=== PATIENT | male | born 1955 | race American Indian/Alaskan Native ===

== ENCOUNTER 2017-11-02 17:59 | Inpatient (IN) | payer OTHER ==
[2017-11-02 18:04] VITALS: BMI 23.5
--- NOTE | 2017-11-02 18:20 | ED PDOC ---
HPI: Hypertension/Hypotension Time Seen by Provider: 11/02/17 18:11 Chief Complaint (Nursing): High Blood Pressure History Per: Patient Onset/Duration Of Symptoms: Hrs (1) Current Symptoms Are (Timing): Better Associated Symptoms: denies: Chest Pain, Dizziness, Focal Weakness, Headache Additional Complaint(s): Brought by police for medical evaluation. Stopped for traffic violation and found to have elevated BP. had headache and dizziness at scene but sxs have since resolved. denies chest pain, palpitations or SOB Past Medical History Vital Signs: Last Vital Signs Temp 98.2 F 11/02/17 18:03 Pulse 68 11/02/17 18:03 Resp 16 11/02/17 18:03 BP 209/88 H 11/02/17 18:03 Pulse Ox 98 11/02/17 18:03 - Medical History PMH: HTN, End Stage Renal Disease (Last dialysis yesterday) - Family History Family History: States: Unknown Family Hx - Allergies Allergies/Adverse Reactions: Allergies Allergy/AdvReac Type Severity Reaction Status Date / Time No Known Allergies Allergy Verified 11/02/17 18:06 Review of Systems Cardiovascular: Negative for: Chest Pain, Palpitations Respiratory: Negative for: Shortness of Breath Neurological: Positive for: Headache, Dizziness Physical Exam - Physical Exam Appears: Positive for: Non-toxic, No Acute Distress Skin: Positive for: Normal Color, Warm, DRY Eye Exam: Positive for: EOMI, PERRL Cardiovascular/Chest: Positive for: Regular Rate, Rhythm Respiratory: Positive for: CNT, Normal Breath Sounds Neurologic/Psych: Positive for: Alert, Oriented. Negative for: Motor/Sensory Deficits - ECG O2 Sat by Pulse Oximetry: 98 Disposition - Clinical Impression Clinical Impression: Hypertension - Patient ED Disposition Is Patient to be Admitted: Transfer of Care - Disposition Disposition: Transfer of Care Disposition Time: 18:58 Condition: FAIR Forms: [employer]ex (Uzbek) Patient Signed Over To: Porfirio Hall
[2017-11-02 19:11] LABS: BASO % 0.7 % (0.0-2.0); EOS # 0.5 K/uL (0.0-0.7); EOS % 6.7 % (0.0-4.0); HEMOGLOBIN 12.3 g/dL (12.0-18.0); LYMPH % 14.9 % (20.0-40.0); MEAN CELL VOLUME 88.1 fl (80.0-94.0); MEAN CORPUSCULAR HEMOGLOBIN 28.1 pg (27.0-31.0); MEAN CORPUSCULAR HGB CONC 31.9 g/dL (33.0-37.0); MEAN PLATELET VOLUME 10.8 fl (7.2-11.7); MONO # 0.8 K/uL (0.0-0.8); MONO % 11.4 % (0.0-10.0); NEUT # 4.6 K/uL (1.8-7.0); NEUT % 66.3 % (50.0-75.0); RBC 4.37 Mil/uL (4.40-5.90); RED CELL DISTRIBUTION WIDTH 15.3 % (11.5-14.5)
--- NOTE | 2017-11-02 19:12 | ED PDOC ---
- Laboratory Results Result Diagrams: 11/02/17 19:00 11/02/17 19:00 - ECG O2 Sat by Pulse Oximetry: 98 Medical Decision Making Medical Decision Makin:00 Patient care is endorsed from Dr. Tyrone Richards to Dr. Porfirio Hall pending blood work and a chest XR. 20:00 BP resolving spontaneously, however still high at 180 systolic. Was unable to obtain prior EKG, attempted to reach Dr. Zoila Shah at without success. Give patient's symptoms, co-morbidities, and lack of prior EKG , will place in OBS Tele for further cardiac troponins and EKG. Will give ASA and coreg for BP. Dr. Connell aware. Scribe Attestation: Documented by Araseli Helms, acting as a scribe for Porfirio Hall MD. Provider Scribe Attestation: All medical entries made by the Scribe were at my direction and personally dictated by me. I have reviewed the chart and agree that the record accurately reflects my personal performance of the history, physical exam, medical decision making, and the department course for this patient. I have also personally directed, reviewed, and agree with the discharge instructions and disposition. Disposition - Clinical Impression Clinical Impression: Hypertension - POA Present On Arrival: None - Disposition Disposition: Hospitalized as Observation Patient Disposition Time: 20:00 Condition: FAIR
[2017-11-02 19:24] LABS: ALB/GLOB RATIO 1.2 (1.0-2.1); ALBUMIN 4.3 g/dL (3.5-5.0); CALCIUM 9.2 mg/dL (8.4-10.2)
[2017-11-02 19:35] LABS: TROPONIN I 0.034 ng/mL (0.00-0.120)
[2017-11-03] MEDS: Insulin Regular 100 units/ml SC SCH ×4 (06:55→22:29)
--- NOTE | 2017-11-03 08:37 | RAD ---
HISTORY: dizziness COMPARISON: No prior. FINDINGS: LUNGS: No active pulmonary disease. PLEURA: No significant pleural effusion identified, no pneumothorax apparent. CARDIOVASCULAR: Normal. OSSEOUS STRUCTURES: Degenerative changes. VISUALIZED UPPER ABDOMEN: Normal. OTHER FINDINGS: None. IMPRESSION: No active disease.
[2017-11-03] MEDS: Enoxaparin 30 mg Syringe SC SCH (09:11)
--- NOTE | 2017-11-03 17:17 | HP ---
CHIEF COMPLAINT: Found to have very high blood pressure. HISTORY OF PRESENT ILLNESS: This is a 62-year-old male, known case of end-stage renal disease, hypertension, on dialysis, who was due for dialysis yesterday, was stopped by police investigator and was found to have suspended licence and the patient got scared and started having coldness in his both lower extremities and then started feeling weak. The patient took his blood pressure, which was 229, so the patient was brought to emergency room and was admitted for further management. REVIEW OF SYSTEMS: Positive for coldness of feet and extremity and generalized weakness. Review of systems otherwise is negative for headache, dizziness, syncope, loss of consciousness, chest pain, shortness of breath, nausea, vomiting, diarrhea, constipation, any new joint or extremity pain. Review of systems of all other organ systems is unremarkable. PAST MEDICAL HISTORY: Significant for hypertension, end-stage renal disease. PAST SURGICAL HISTORY: Remarkable for dialysis-related procedures. PERSONAL HISTORY: Patient is currently nonsmoker, nondrinker. No substance abuse. MEDICATION: The patient is on medication as per reconciliation sheet, which was reviewed and ordered. ALLERGIES: THE PATIENT IS NOT ALLERGIC TO ANY MEDICATION. FAMILY HISTORY: Noncontributory. PHYSICAL EXAMINATION: GENERAL: Well-built, well-nourished, 62-year-old male, in no acute distress. VITAL SIGNS: Temperature afebrile, pulse 60, respirations 18, blood pressure 162/76. HEENT: Pupils reacting to light. No JVD. No thyromegaly. No lymphadenopathy. No nystagmus. Normocephalic, atraumatic skull. HEART: S1 and S2. Normal and regular. No significant murmur, gallop or rub is heard. LUNGS: Shows good bilateral air exchange. No rales or rhonchi. ABDOMEN: Soft, nontender. No organomegaly. No fluid. Bowel sounds are plus and normal. EXTREMITIES: No edema. No calf swelling. No tenderness. No acute ischemia. [employer]: The patient is alert, awake, oriented x3. There is no sign of any acute gross focal motor, sensory, or neurological deficit. DIAGNOSTIC DATA: Available diagnostic data reviewed. Telemetry monitoring does not reveal significant arrhythmias. WBC 7, hemoglobin 12.3, hematocrit 38.5, and platelets 183. Sodium 141, potassium 4.3, chloride 100, bicarb 27, BUN 15, creatinine 7.3. SMA-12 is unremarkable. Troponin, two sets are negative. EKG shows sinus rhythm with left ventricular hypertrophy. No acute ST-T changes. Chest x-ray is clear. ADMITTING IMPRESSION: Accelerated hypertension, end-stage renal disease. PLAN: As ordered. Case and plan discussed with the patient. Santos Connell MD
--- NOTE | 2017-11-03 22:19 | CP.PCM.PN ---
Subjective - Date & Time of Evaluation Date of Evaluation: 11/03/17 Time of Evaluation: 22:18 - Subjective Subjective: Renal Note pt seen and examined HD today as ordered BP meds adjusted Thanks for consult Objective - Vital Signs/Intake and Output Vital Signs (last 24 hours): Temp Pulse Resp BP Pulse Ox 98 F 60 16 172/78 H 98 11/03/17 16:52 11/03/17 17:16 11/03/17 16:52 11/03/17 17:16 11/03/17 16:52 - Medications Medications: Current Medications Amlodipine Besylate (Norvasc) 10 mg PO DAILY [facility] Last Admin: 11/03/17 09:10 Dose: Not Given Atorvastatin Calcium (Lipitor) 40 mg PO DAILY [facility] Last Admin: 11/03/17 09:11 Dose: 40 mg Carvedilol (Coreg) 12.5 mg PO BID [facility] Last Admin: 11/03/17 17:14 Dose: 12.5 mg Enoxaparin Sodium (Lovenox) 30 mg SC DAILY [facility] PRN Reason: Protocol Last Admin: 11/03/17 09:11 Dose: 30 mg Hydralazine HCl (Apresoline) 100 mg PO BID [facility] Last Admin: 11/03/17 09:10 Dose: Not Given Insulin Human Regular (Humulin R) 0 units SC ACHS [facility] PRN Reason: Protocol Last Admin: 11/03/17 17:15 Dose: 2 units Losartan Potassium (Cozaar) 50 mg PO QPM [facility] Last Admin: 11/03/17 17:16 Dose: 50 mg Vitamin B Complex/Vit C/Folic Acid (Nephro-Celia) 1 tab PO DAILY [facility] - Labs Labs: 11/02/17 19:00 11/02/17 19:00
[2017-11-04] MEDS: Enoxaparin 30 mg Syringe SC SCH (08:46)
[2017-11-04] MEDS: Multivitamin Vitamin B Complex (Nephro-Vite) Tab PO SCH (08:47)
[2017-11-04] MEDS: Insulin Regular 100 units/ml SC SCH ×4 (08:47→22:31)
[2017-11-04 12:37] LABS: HEPATITIS B SURFACE AG Negative (NEGATIVE)
[2017-11-04 12:43] LABS: HEPATITIS B CORE AB NEGATIVE (NEGATIVE)
--- NOTE | 2017-11-04 19:05 | CP.PCM.CON ---
History of Present Illness - History of Present Illness History of Present Illness: Nephrology Consultation Note: Assessment: Stable uncontrolled severe HTN with urgency Hypertensive Chronic Kidney Disease (I12.0) End stage renal disease (N18.6) dependence on hemodialysis (Z99.2) (TTS) via AVF Anemia (D64.9), Hyperphosphatemia (E83.39), Secondary Hyperparathyroidism (E21.1 ), HTN (I12.0) Plan: Will plan for HD today as ordered. Continue with Nephrovite 1 tab/day. PRBC as needed for anemia. not on RAVI with dialysis as last Hb 12.3 Continue with phos binders, check phos level BP control with meds as ordered. Patient not on RAAS josh as hence will start losartan Glycemic control, Dialysis consistent diet Further work up/management as per primary team Dose meds/antibiotics (if needed) for ESRD status. Avoid fleets enema/magnesium based laxatives. Thanks for allowing me to participate in care of your patient. Will follow patient with you. Please call if any Qs Dr Everton Carballo Office: [phone] Chief Complaint;elevated BP HPI: Pt is a 62 M with hx of ESRD on hemodialysis TTS) via AVF, last dialysis thur, chronic anemia, hyperphosphatemia, secondary hyperparathyroidism, hypertension presented with complaints of high BP Renal consult requested for ESRD management. ROS: Cardiovascular: No chest pain. Pulmonary: No shortness of breath Gastrointestinal: denies abdominal pain No nausea. No vomiting. Genitourinary: No pain while urinating. Denies blood in urine. All other negative except as mentioned in HPI Physical Examination: General Appearance: Comfortable, in no acute respiratory distress, co-operative . Vitals reviewed and noted as below Head; Atraumatic, normocephalic ENT: no ulcers no thrush. Tongue is midline. Oropharynx: no rash or ulcers. EYES: Pupils are equal, round and reactive to light accommodation. Eye muscles and extraocular movement intact. Sclera is anicteric. Neck; supple no lymphadenopathy, no thyromegaly or bruit Lungs: Normal respiratory rate/effort. Breath sounds bilateral equal and clear Heart: Normal rate. s1s2 normal. No rub or gallop. Extremities: no edema. No varicose veins Neurological: Patient is alert, awake and oriented to person, place and time. No focal deficit. Strength bilateral appropriate and equal Skin: Warm and dry. Normal turgor. No rash. Palpitation: Normal elasticity for age Abdomen: Abdomen is soft. Bowel sounds +. There is no abdominal tenderness, no guarding/rigidity or organomegaly Psych: normal insight and normal affect/mood MSK: no joint tenderness or swelling. Digits and nails normal, no deformity : kidney or bladder not palpable Access: AVF Labs/imaging reviewed. Past medical history, past surgical history, family history, social history, allergy reviewed and noted as below Family Hx: no hx of CKD. Non contributory Past Patient History - Past Medical History & Family History Past Medical History?: Yes - Past Social History Smoking Status: Never Smoked - CARDIAC Hx Cardiac Disorders: Yes (HTN, hypercholesterolemia) Hx Hypercholesterolemia: Yes Hx Hypertension: Yes - PULMONARY Hx Respiratory Disorders: No - NEUROLOGICAL Hx Neurological Disorder: No - HEENT Hx HEENT Problems: No - RENAL Hx Chronic Kidney Disease: Yes (CKD) Hx Dialysis: Yes Type of Dialysis Access: left arm AV shunt Date of Last Dialysis Treatment: 11/01/17 - ENDOCRINE/METABOLIC Hx Endocrine Disorders: Yes (DM) Hx Diabetes Mellitus Type 2: Yes - HEMATOLOGICAL/ONCOLOGICAL Hx Blood Disorders: No Hx AIDS: No Hx Human Immunodeficiency Virus (HIV): No - INTEGUMENTARY Hx Dermatological Problems: No - MUSCULOSKELETAL/RHEUMATOLOGICAL Hx Musculoskeletal Disorders: No Hx Falls: No - GASTROINTESTINAL Hx Gastrointestinal Disorders: No - GENITOURINARY/GYNECOLOGICAL Hx Genitourinary Disorders: No - PSYCHIATRIC Hx Psychophysiologic Disorder: No Hx Substance Use: No - SURGICAL HISTORY Hx Surgeries: Yes Other/Comment: shunt on right arm - ANESTHESIA Hx Anesthesia: Yes Hx Anesthesia Reactions: No Meds Allergies/Adverse Reactions: Allergies Allergy/AdvReac Type Severity Reaction Status Date / Time No Known Allergies Allergy Verified 11/02/17 18:06 - Medications Medications: Current Medications Amlodipine Besylate (Norvasc) 10 mg PO DAILY [facility] Last Admin: 11/04/17 08:47 Dose: 10 mg Atorvastatin Calcium (Lipitor) 40 mg PO DAILY [facility] Last Admin: 11/04/17 08:47 Dose: 40 mg Carvedilol (Coreg) 12.5 mg PO BID [facility] Last Admin: 11/04/17 17:04 Dose: 12.5 mg Enoxaparin Sodium (Lovenox) 30 mg SC DAILY [facility] PRN Reason: Protocol Last Admin: 11/04/17 08:46 Dose: 30 mg Hydralazine HCl (Apresoline) 100 mg PO TID [facility] Last Admin: 11/04/17 17:04 Dose: 100 mg Insulin Human Regular (Humulin R) 0 units SC ACHS [facility] PRN Reason: Protocol Last Admin: 11/04/17 17:02 Dose: Not Given Losartan Potassium (Cozaar) 100 mg PO QPM [facility] Last Admin: 11/04/17 17:03 Dose: 100 mg Vitamin B Complex/Vit C/Folic Acid (Nephro-Celia) 1 tab PO DAILY [facility] Last Admin: 11/04/17 08:47 Dose: 1 tab Results - Vital Signs Recent Vital Signs: Last Vital Signs Temp 97.9 F 11/04/17 16:27 Pulse 62 11/04/17 17:04 Resp 16 11/04/17 16:27 BP 159/75 H 11/04/17 17:04 Pulse Ox 96 11/04/17 16:27 - Labs Result Diagrams: 11/02/17 19:00 11/02/17 19:00 Labs: Laboratory Results - last 24 hr 11/03/17 11/03/17 11/03/17 21:00 21:00 21:42 POC Glucose (mg/dL) 125 H Hep Bs Antigen Negative Hep Bs Antibody Positive Hep B Core IgM Ab Negative 11/04/17 11/04/17 11/04/17 05:19 11:23 15:58 POC Glucose (mg/dL) 132 H 261 H 139 H Hep Bs Antigen Hep Bs Antibody Hep B Core IgM Ab
--- NOTE | 2017-11-04 19:06 | CP.PCM.PN ---
Subjective - Date & Time of Evaluation Date of Evaluation: 11/04/17 Time of Evaluation: 19:06 - Subjective Subjective: Nephrology Consultation Note: Assessment: Stable uncontrolled severe HTN with urgency Hypertensive Chronic Kidney Disease (I12.0) End stage renal disease (N18.6) dependence on hemodialysis (Z99.2) (TTS) via AVF Anemia (D64.9), Hyperphosphatemia (E83.39), Secondary Hyperparathyroidism (E21.1 ), HTN (I12.0) Plan: Will plan for HD sunday as ordered. Continue with Nephrovite 1 tab/day. PRBC as needed for anemia. not on RAVI with dialysis as last Hb 12.3 Continue with phos binders, check phos level BP control with meds as ordered. Increased hydralazine and losartan Glycemic control, Dialysis consistent diet Further work up/management as per primary team Dose meds/antibiotics (if needed) for ESRD status. Avoid fleets enema/magnesium based laxatives. Thanks for allowing me to participate in care of your patient. Will follow patient with you. Please call if any Qs Dr Everton Carballo Office: [phone] Chief Complaint;elevated BP HPI: Pt is a 62 M with hx of ESRD on hemodialysis TTS) via AVF, last dialysis thur, chronic anemia, hyperphosphatemia, secondary hyperparathyroidism, hypertension presented with complaints of high BP Renal consult requested for ESRD management. ROS: Cardiovascular: No chest pain. Pulmonary: No shortness of breath Gastrointestinal: denies abdominal pain No nausea. No vomiting. Genitourinary: No pain while urinating. Denies blood in urine. All other negative except as mentioned in HPI Physical Examination: General Appearance: Comfortable, in no acute respiratory distress, co-operative . Vitals reviewed and noted as below Head; Atraumatic, normocephalic ENT: no ulcers no thrush. Tongue is midline. Oropharynx: no rash or ulcers. EYES: Pupils are equal, round and reactive to light accommodation. Eye muscles and extraocular movement intact. Sclera is anicteric. Neck; supple no lymphadenopathy, no thyromegaly or bruit Lungs: Normal respiratory rate/effort. Breath sounds bilateral equal and clear Heart: Normal rate. s1s2 normal. No rub or gallop. Extremities: no edema. No varicose veins Neurological: Patient is alert, awake and oriented to person, place and time. No focal deficit. Strength bilateral appropriate and equal Skin: Warm and dry. Normal turgor. No rash. Palpitation: Normal elasticity for age Abdomen: Abdomen is soft. Bowel sounds +. There is no abdominal tenderness, no guarding/rigidity or organomegaly Psych: normal insight and normal affect/mood MSK: no joint tenderness or swelling. Digits and nails normal, no deformity : kidney or bladder not palpable Access: AVF Labs/imaging reviewed. Past medical history, past surgical history, family history, social history, allergy reviewed and noted as below Family Hx: no hx of CKD. Non contributory Objective - Vital Signs/Intake and Output Vital Signs (last 24 hours): Temp Pulse Resp BP Pulse Ox 97.9 F 62 16 159/75 H 96 11/04/17 16:27 11/04/17 17:04 11/04/17 16:27 11/04/17 17:04 11/04/17 16:27 - Medications Medications: Current Medications Amlodipine Besylate (Norvasc) 10 mg PO DAILY [facility] Last Admin: 11/04/17 08:47 Dose: 10 mg Atorvastatin Calcium (Lipitor) 40 mg PO DAILY [facility] Last Admin: 11/04/17 08:47 Dose: 40 mg Carvedilol (Coreg) 12.5 mg PO BID [facility] Last Admin: 11/04/17 17:04 Dose: 12.5 mg Enoxaparin Sodium (Lovenox) 30 mg SC DAILY [facility] PRN Reason: Protocol Last Admin: 11/04/17 08:46 Dose: 30 mg Hydralazine HCl (Apresoline) 100 mg PO TID [facility] Last Admin: 11/04/17 17:04 Dose: 100 mg Insulin Human Regular (Humulin R) 0 units SC ACHS [facility] PRN Reason: Protocol Last Admin: 11/04/17 17:02 Dose: Not Given Losartan Potassium (Cozaar) 100 mg PO QPM [facility] Last Admin: 11/04/17 17:03 Dose: 100 mg Vitamin B Complex/Vit C/Folic Acid (Nephro-Celia) 1 tab PO DAILY [facility] Last Admin: 11/04/17 08:47 Dose: 1 tab - Labs Labs: 11/02/17 19:00 11/02/17 19:00
--- NOTE | 2017-11-04 23:06 | CP.PCM.CON ---
History of Present Illness - History of Present Illness History of Present Illness: Consultation for uncontrolled HTN HPI: 62-year-old male with history of end-stage renal disease on hemodialysis was brought by police for medical evaluation after being stopped at a traffic violation of found to have uncontrolled elevated blood pressure accompanied with headache and dizziness at the scene but patient's symptoms subsequently resolved. Patient was evaluated by nephrology and was noted to have blood pressure which was elevated systolic was in the 180s. Patient was patient underwent hemodialysis and was given Nephro-Celia. Patient currently on Norvasc 10 mg along with Coreg 12.5 mg hydralazine 10 mg 3 times daily losartan 100 mg which was initiated on this admission blood pressure trend have started to improve and blood pressure seems to be well controlled last blood pressure this night was 118/49. Patient's chest x-ray on presentation showed no acute cardiopulmonary process echocardiogram was done on Sunday morning which was reviewed by me. Review of Systems - Review of Systems Systems not reviewed;Unavailable: Acuity of Condition - Constitutional Constitutional: As Per HPI - EENT Eyes: As Per HPI Ears: As Per HPI Nose/Mouth/Throat: As Per HPI - Cardiovascular Cardiovascular: As Per HPI - Respiratory Respiratory: As Per HPI - Gastrointestinal Gastrointestinal: As Per HPI - Genitourinary Genitourinary: As Per HPI - Reproductive: Male Reproductive:Male: As Per HPI - Musculoskeletal Musculoskeletal: As Per HPI - Integumentary Integumentary: As Per HPI - Neurological Neurological: As Per HPI - Psychiatric Psychiatric: As Per HPI - Endocrine Endocrine: As Per HPI - Hematologic/Lymphatic Hematologic: As Per HPI Past Patient History - Past Medical History & Family History Past Medical History?: Yes - Past Social History Smoking Status: Never Smoked - CARDIAC Hx Cardiac Disorders: Yes (HTN, hypercholesterolemia) Hx Hypercholesterolemia: Yes Hx Hypertension: Yes - PULMONARY Hx Respiratory Disorders: No - NEUROLOGICAL Hx Neurological Disorder: No - HEENT Hx HEENT Problems: No - RENAL Hx Chronic Kidney Disease: Yes (CKD) Hx Dialysis: Yes Type of Dialysis Access: left arm AV shunt Date of Last Dialysis Treatment: 11/01/17 - ENDOCRINE/METABOLIC Hx Endocrine Disorders: Yes (DM) Hx Diabetes Mellitus Type 2: Yes - HEMATOLOGICAL/ONCOLOGICAL Hx Blood Disorders: No Hx AIDS: No Hx Human Immunodeficiency Virus (HIV): No - INTEGUMENTARY Hx Dermatological Problems: No - MUSCULOSKELETAL/RHEUMATOLOGICAL Hx Musculoskeletal Disorders: No Hx Falls: No - GASTROINTESTINAL Hx Gastrointestinal Disorders: No - GENITOURINARY/GYNECOLOGICAL Hx Genitourinary Disorders: No - PSYCHIATRIC Hx Psychophysiologic Disorder: No Hx Substance Use: No - SURGICAL HISTORY Hx Surgeries: Yes Other/Comment: shunt on right arm - ANESTHESIA Hx Anesthesia: Yes Hx Anesthesia Reactions: No Meds Allergies/Adverse Reactions: Allergies Allergy/AdvReac Type Severity Reaction Status Date / Time No Known Allergies Allergy Verified 11/02/17 18:06 - Medications Medications: Current Medications Amlodipine Besylate (Norvasc) 10 mg PO DAILY [facility] Last Admin: 11/04/17 08:47 Dose: 10 mg Atorvastatin Calcium (Lipitor) 40 mg PO DAILY [facility] Last Admin: 11/04/17 08:47 Dose: 40 mg Carvedilol (Coreg) 12.5 mg PO BID [facility] Last Admin: 11/04/17 17:04 Dose: 12.5 mg Enoxaparin Sodium (Lovenox) 30 mg SC DAILY [facility] PRN Reason: Protocol Last Admin: 11/04/17 08:46 Dose: 30 mg Hydralazine HCl (Apresoline) 100 mg PO TID [facility] Last Admin: 11/04/17 17:04 Dose: 100 mg Insulin Human Regular (Humulin R) 0 units SC ACHS [facility] PRN Reason: Protocol Last Admin: 11/04/17 22:31 Dose: Not Given Losartan Potassium (Cozaar) 100 mg PO QPM [facility] Last Admin: 11/04/17 17:03 Dose: 100 mg Vitamin B Complex/Vit C/Folic Acid (Nephro-Celia) 1 tab PO DAILY [facility] Last Admin: 11/04/17 08:47 Dose: 1 tab Physical Exam - Constitutional Appears: Well - Head Exam Head Exam: ATRAUMATIC, NORMAL INSPECTION, NORMOCEPHALIC - Eye Exam Eye Exam: EOMI, Normal appearance, PERRL Pupil Exam: NORMAL ACCOMODATION, PERRL - ENT Exam ENT Exam: Mucous Membranes Moist, Normal Exam - Neck Exam Neck exam: Positive for: Normal Inspection - Respiratory Exam Respiratory Exam: Clear to Auscultation Bilateral, NORMAL BREATHING PATTERN - Cardiovascular Exam Cardiovascular Exam: REGULAR RHYTHM, +S1, +S2, Systolic Murmur - GI/Abdominal Exam GI & Abdominal Exam: Normal Bowel Sounds, Soft. absent: Tenderness - Extremities Exam Extremities exam: Positive for: normal inspection - Back Exam Back exam: NORMAL INSPECTION - Neurological Exam Neurological exam: Alert, CN II-XII Intact, Normal Gait, Oriented x3, Reflexes Normal - Psychiatric Exam Psychiatric exam: Normal Affect, Normal Mood - Skin Skin Exam: Dry, Intact, Normal Color, Warm Results - Vital Signs Recent Vital Signs: Last Vital Signs Temp 98.3 F 11/04/17 20:06 Pulse 53 L 11/04/17 20:06 Resp 16 11/04/17 20:06 BP 118/49 L 11/04/17 20:06 Pulse Ox 98 11/04/17 20:06 - Labs Result Diagrams: 11/02/17 19:00 11/02/17 19:00 Labs: Laboratory Results - last 24 hr 11/03/17 11/03/17 11/03/17 21:00 21:00 21:42 POC Glucose (mg/dL) 125 H Hep Bs Antigen Negative Hep Bs Antibody Positive Hep B Core IgM Ab Negative 11/04/17 11/04/17 11/04/17 05:19 11:23 15:58 POC Glucose (mg/dL) 132 H 261 H 139 H Hep Bs Antigen Hep Bs Antibody Hep B Core IgM Ab 11/04/17 21:33 POC Glucose (mg/dL) 199 H Hep Bs Antigen Hep Bs Antibody Hep B Core IgM Ab Assessment & Plan (1) Hypertension Assessment and Plan: BP improving on current meds cont norvasc, coreg, hydralazine and losartan check renal duplex echo shows mild LVH Status: Acute
[2017-11-05 00:04] VITALS: RESP 18
--- NOTE | 2017-11-05 08:03 | PN ---
DATE: 11/04/2017 SUBJECTIVE: The patient is seen and examined. Interim events noted. Consults noted and appreciated. The patient remains in progressive care unit. The patient feels okay. Denies any specific complaint. No chest pain. No shortness of breath. PHYSICAL EXAMINATION: GENERAL: The patient is no acute distress. VITAL SIGNS: Stable. HEART: S1 and S2. Normal and regular. LUNGS: Good bilateral air exchange. ABDOMEN: Soft and nontender. EXTREMITIES: No edema. No calf swelling. No tenderness. No acute ischemia. RECRUITING CONSULTANT: Exam is essentially unchanged. DIAGNOSTIC DATA: Available diagnostic data reviewed. ASSESSMENT AND PLAN: Overall, the patient's general medical condition is stable and improving. Plan as ordered. Santos Connell MD
[2017-11-05 08:27] VITALS: O2SAT 97
[2017-11-05] MEDS: Enoxaparin 30 mg Syringe SC SCH (08:36)
[2017-11-05] MEDS: Insulin Regular 100 units/ml SC SCH ×2 (08:37→12:51)
[2017-11-05] MEDS: Multivitamin Vitamin B Complex (Nephro-Vite) Tab PO SCH (08:38)
[2017-11-05 08:40] VITALS: PULSE 52
--- NOTE | 2017-11-05 10:39 | CP.PCM.PN ---
Subjective - Date & Time of Evaluation Date of Evaluation: 11/05/17 Time of Evaluation: 10:37 - Subjective Subjective: feeling fine denies any complaints bb on hold 2' to low HR Objective - Vital Signs/Intake and Output Vital Signs (last 24 hours): Temp Pulse Resp BP Pulse Ox 97.9 F 52 L 18 119/61 97 11/05/17 08:27 11/05/17 08:40 11/05/17 08:27 11/05/17 08:40 11/05/17 08:27 - Medications Medications: Current Medications Amlodipine Besylate (Norvasc) 10 mg PO DAILY [facility] Last Admin: 11/05/17 08:39 Dose: 10 mg Atorvastatin Calcium (Lipitor) 40 mg PO DAILY [facility] Last Admin: 11/05/17 08:38 Dose: 40 mg Carvedilol (Coreg) 6.25 mg PO BID [facility] Enoxaparin Sodium (Lovenox) 30 mg SC DAILY [facility] PRN Reason: Protocol Last Admin: 11/05/17 08:36 Dose: 30 mg Hydralazine HCl (Apresoline) 100 mg PO TID [facility] Last Admin: 11/05/17 08:40 Dose: 100 mg Insulin Human Regular (Humulin R) 0 units SC ACHS [facility] PRN Reason: Protocol Last Admin: 11/05/17 08:37 Dose: 3 units Losartan Potassium (Cozaar) 100 mg PO QPM [facility] Last Admin: 11/04/17 17:03 Dose: 100 mg Vitamin B Complex/Vit C/Folic Acid (Nephro-Celia) 1 tab PO DAILY [facility] Last Admin: 11/05/17 08:38 Dose: 1 tab - Labs Labs: 11/02/17 19:00 11/02/17 19:00 - Constitutional Appears: Well - Head Exam Head Exam: ATRAUMATIC, NORMAL INSPECTION, NORMOCEPHALIC - Eye Exam Eye Exam: EOMI, Normal appearance, PERRL Pupil Exam: NORMAL ACCOMODATION, PERRL - ENT Exam ENT Exam: Mucous Membranes Moist, Normal Exam - Neck Exam Neck Exam: Full ROM, Normal Inspection. absent: Lymphadenopathy - Respiratory Exam Respiratory Exam: Clear to Ausculation Bilateral, NORMAL BREATHING PATTERN - Cardiovascular Exam Cardiovascular Exam: REGULAR RHYTHM, +S1, +S2, Murmur - GI/Abdominal Exam GI & Abdominal Exam: Soft, Normal Bowel Sounds. absent: Tenderness - Extremities Exam Extremities Exam: Full ROM, Normal Capillary Refill, Normal Inspection. absent : Joint Swelling, Pedal Edema - Back Exam Back Exam: NORMAL INSPECTION - Neurological Exam Neurological Exam: Alert, Awake, CN II-XII Intact, Normal Gait, Oriented x3 - Psychiatric Exam Psychiatric exam: Normal Affect, Normal Mood - Skin Skin Exam: Dry, Intact, Normal Color, Warm Assessment and Plan (1) Hypertension Assessment & Plan: bb relative ci 2' to bradycardia cont hydralazine, losartan and norvasc echo reviewed stable to dc home Status: Acute
--- NOTE | 2017-11-05 10:55 | CP.PCM.PCO ---
Assessment/Plan - Assessment and Plan (Free Text) Assessment: Patient seen and examined this morning Vs stable, normotensive afebrile. Patient denies chest pain shortness of breath nausea vomiting Patient seen by Dr Miller, medication adjustments noted and reviewed with patient. Coreg dcd. Hydralazine increased by Dr Haris Gonzalez Cleared by both for dc home Follow up with PMD in [facility] for follow up If unavailable, patient may follow up with Dr Connell in 1 week. SW to reinstate HD TTHS in patients center in [place].
--- NOTE | 2017-11-05 11:28 | CARD ---
APPROVED REPORT EXAM: Two-dimensional and M-mode echocardiogram with Doppler and color Doppler. Other Information Quality : ExcellentRhythm : NSR INDICATION Hypertension/HCVD 2D DIMENSIONS IVSd1.13 (0.7-1.1cm)LVDd4.65 (3.9-5.9cm) LVOT Diameter2.21 (1.8-2.4cm)PWd1.18 (0.7-1.1cm) IVSs1.69 (0.8-1.2cm)LVDs2.68 (2.5-4.0cm) FS (%) 42.4 %PWs2.04 (0.8-1.2cm) M-Mode DIMENSIONS Left Atrium (MM)3.44 (2.5-4.0cm)IVSd1.18 (0.7-1.1cm) Aortic Root2.97 (2.2-3.7cm)LVDd5.21 (4.0-5.6cm) Aortic Cusp Exc.1.82 (1.5-2.0cm)PWd1.38 (0.7-1.1cm) IVSs2.03 cmFS (%) 50 % LVDs2.62 (2.0-3.8cm)PWs1.76 cm Mitral Valve MV E Rfmsyurs34.2cm/sMV DECEL [id number] A Szqmiail14.8cm/s MV [id number]/A ratio0.8MVA (PHT)2.82cm2 TDI Lateral E' Peak V8.07cm/sMedial E' Peak V4.97cm/sE/Lateral E'8.5 E/Medial E'13.7 Pulmonary Valve PV Peak Nkacqccg75.3cm/s LEFT VENTRICLE The left ventricle is normal size. There is mild concentric left ventricular hypertrophy. The left ventricular function is normal. The left ventricular ejection fraction is 55% There is normal LV segmental wall motion. Transmitral Doppler flow pattern is Grade I-abnormal relaxation pattern. No left ventricle thrombus noted on this study. There is no ventricular septal defect visualized. There is no left ventricular aneurysm. There is no mass noted in the left ventricle. RIGHT VENTRICLE The right ventricle is normal size. There is normal right ventricular wall thickness. The right ventricular systolic function is normal. ATRIA The left atrium size is normal. The right atrium size is normal. The interatrial septum is intact with no evidence for an atrial septal defect. AORTIC VALVE The aortic valve is normal in structure. No aortic regurgitation is present. There is no aortic valvular stenosis. There is no aortic valvular vegetation. MITRAL VALVE The mitral valve is normal in structure. There is no evidence of mitral valve prolapse. There is no mitral valve stenosis. There is no mitral valve regurgitation noted. TRICUSPID VALVE The tricuspid valve is normal in structure. There is no tricuspid valve regurgitation noted. There is no tricuspid valve prolapse or vegetation. There is no tricuspid valve stenosis. PULMONIC VALVE The pulmonary valve is normal in structure. There is no pulmonic valvular regurgitation. There is no pulmonic valvular stenosis. GREAT VESSELS The aortic root is normal in size. The ascending aorta is normal in size. The IVC is normal in size and collapses >50% with inspiration. PERICARDIAL EFFUSION The pericardium appears normal. There is no pleural effusion. <Conclusion> Normal LV systolic function Concentric LVH
--- NOTE | 2017-11-05 11:43 | CARD ---
APPROVED REPORT EKG Measurement Heart [id number] <Conclusion> Normal sinus rhythm Minimal voltage criteria for LVH, may be normal variant ST elevation, consider early repolarization, pericarditis, or injury T wave abnormality, consider lateral ischemia Abnormal ECG
[2017-11-05 12:49] VITALS: BP 137/62; TEMP 97.5
--- NOTE | 2017-11-05 13:20 | PN ---
DATE: 11/05/2017 SUBJECTIVE: The patient seen and examined. Interim events noted. Consults noted and appreciated. Cardiology and Nephrology followup and interventions noted and appreciated. The patient remains in progressive care unit on telemetry monitoring. Feels okay. Denies any chest pain or shortness of breath. PHYSICAL EXAMINATION: GENERAL: The patient is in no acute distress. VITAL SIGNS: Stable. HEART: S1 and S2, normal and regular. LUNGS: Good bilateral air exchange. ABDOMEN: Soft, nontender. EXTREMITIES: No edema. No calf swelling. No tenderness. No acute ischemia. 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 DIAGNOSTIC DATA: Available diagnostic data reviewed. Telemetry monitoring does not show significant arrhythmias. ASSESSMENT AND PLAN: Overall, the patient's general medical condition is stable. Plan as ordered. Santos Connell MD
--- NOTE | 2017-11-07 14:00 | PQF ---
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 Please specify the type of hypertension such as: -Cardiorenal -Crisis -Emergency -Portal -Pulmonary -Secondary (please specify underlying cause) -Urgency -With heart disease -With hypertensive encephalopathy -With renal disease -Other (please specify in the medical record) The patient's Clinical Indicators include: XXX Query created by: Jolly Wilson on 11/06/2017 9:56 AM Electronically signed by: Santos Connell 11/07/2017 1:57 PM
== END 2017-11-05 14:56 | disposition home or self-care (01) | DRG 316 ==
LOC: H.ER 17:59 → H.ERHOLD 19:54 → H.TEL 11-03 01:28 → OBSVTOIN 11-04 18:17
PROVIDERS: ADMIT Internal Medicine; ATTEND Internal Medicine
PROC: 5A1D70Z Performance of Urinary Filtration, Intermittent, Less than 6 Hours Per Day (ICD-10-PCS; principal; 2017-11-04)
DX: I12.0 Hypertensive chronic kidney disease with stage 5 chronic kidney disease or end stage renal disease (principal); N18.6 End stage renal disease; E11.22 Type 2 diabetes mellitus with diabetic chronic kidney disease; N25.81 Secondary hyperparathyroidism of renal origin; D64.9 Anemia, unspecified; E83.39 Other disorders of phosphorus metabolism; E78.00 Pure hypercholesterolemia, unspecified; Z99.2 Dependence on renal dialysis; R00.1 Bradycardia, unspecified; T46.1X5A Adverse effect of calcium-channel blockers, initial encounter